=== PATIENT | male | born 1955 | race African-American/Black ===

== ENCOUNTER 2020-04-18 06:28 | Inpatient (IN) | payer OTHER ==
[~2020-04-18] VITALS: Ht 180.3 cm; Wt 87.6 kg
[2020-04-18] MEDS ORDERED: ONDANSETRON HCL 4MG/2ML INJ IV STA (08:00)
[2020-04-18] MEDS ORDERED: MORPHINE SULFATE 4 MG/ML CPJ (NOT FOR IM USE) IV STA (08:00)
[2020-04-18 08:11] LABS: BASOPHILS % 0.7 % (0.0-2.0); EOSINOPHILS % 4.4 % (0.0-5.0); HEMATOCRIT. 43.9 % (42.0-52.0); HEMOGLOBIN. 14.5 g/dL (14.0-18.0); LYMPHOCYTES % 12.2 % (20.0-50.0); MEAN CORPUSCULAR HEMOGLOBIN 26.1 pg (28.0-32.0); MEAN PLATELET VOLUME 7.2 fl (7.4-10.4); MONOCYTES % 9.9 % (2.0-8.0); NEUTROPHILS % 72.8 % (40.0-76.0); PLATELET 320 x1000/uL (130-400); RED BLOOD CELL COUNT 5.55 mill/uL (4.7-6.1); RED CELL DISTRIBUTION WIDTH 18.7 % (11.6-14.6)
[2020-04-18 08:15] LABS: CHLORIDE 104 mEq/L (98-107)
[2020-04-18 08:20] LABS: PROTHROMBIN TIME 11.1 sec (9.6-11.0)
[2020-04-18] MEDS ORDERED: MORPHINE SULFATE 4 MG/ML CPJ (NOT FOR IM USE) IV ONE (08:45)
[2020-04-18] MEDS ORDERED: KETOROLAC 30MG/ML VIAL IV ONE (08:45)
[2020-04-18] MEDS ORDERED: HYDROCODONE/ACETAMINOPHEN 10/325MG TABLET PO PRN (14:00)
[2020-04-18] MEDS ORDERED: ONDANSETRON HCL 4MG/2ML INJ IV PRN (14:00)
[2020-04-18] MEDS ORDERED: ACETAMINOPHEN 325MG TABLET PO PRN (14:00)
[2020-04-18] MEDS: MORPHINE SULFATE 2 MG/ML CPJ (NOT FOR IM USE) IV PRN ×3 (14:20→22:04)
[2020-04-18 15:20] VITALS: BP 156/76
[2020-04-18 20:13] VITALS: BP 171/79
[2020-04-18] MEDS: AMLODIPINE 5MG TABLET PO SCH (21:21)
[2020-04-19 00:06] VITALS: BP 145/75
[2020-04-19 04:22] VITALS: BP 143/78
[2020-04-19] MEDS: MORPHINE SULFATE 2 MG/ML CPJ (NOT FOR IM USE) IV PRN (05:44)
[2020-04-19 05:54] LABS: BASOPHILS % 0.6 % (0.0-2.0); EOSINOPHILS % 3.9 % (0.0-5.0); HEMATOCRIT. 42.6 % (42.0-52.0); LYMPHOCYTES % 13.1 % (20.0-50.0); MEAN CORPUSCULAR VOLUME 78.8 fL (80.0-94.0); MEAN PLATELET VOLUME 7.7 fl (7.4-10.4); MONOCYTES % 11.6 % (2.0-8.0); NEUTROPHILS % 70.8 % (40.0-76.0); PLATELET 272 x1000/uL (130-400); RED CELL DISTRIBUTION WIDTH 17.7 % (11.6-14.6)
[2020-04-19 07:09] LABS: CHLORIDE 103 mEq/L (98-107)
[2020-04-19 08:00] VITALS: BP 171/86
[2020-04-19] MEDS: AMLODIPINE 5MG TABLET PO SCH ×2 (08:45→19:50)
[2020-04-19 10:08] LABS: *AMPHETAMINES SCREEN URINE NEGATIVE (NEGATIVE); *BARBITURATES SCREEN URINE NEGATIVE (NEGATIVE)
[2020-04-19 10:09] LABS: *BENZODIAZEPINES SCREEN URINE NEGATIVE (NEGATIVE); *COCAINE SCREEN URINE NEGATIVE (NEGATIVE); CANNABINOID URINE SCREEN NEGATIVE (NEGATIVE); METHADONE URINE SCREEN NEGATIVE (NEGATIVE); OPIATES URINE SCREEN PRESUMTIVE POSITIVE (NEGATIVE); PHENCYCLIDINE URINE SCREEN NEGATIVE (NEGATIVE)
[2020-04-19 11:55] VITALS: BP 130/74
[2020-04-19] MEDS: MORPHINE SULFATE 4 MG/ML CPJ (NOT FOR IM USE) IV PRN ×3 (14:39→23:59)
[2020-04-19 16:00] VITALS: BP 132/50
[2020-04-19] MEDS: NITROGLYCERIN 0.4MG TABLET SL SL PRN ×3 (17:25→18:52)
[2020-04-19] MEDS: ISOSORBIDE MONONITRATE 60MG TABLET SR 24HR PO SCH (19:50)
[2020-04-19 20:28] VITALS: BP 133/76
[2020-04-20 00:02] VITALS: BP 137/68
[2020-04-20 04:00] VITALS: BP 131/70
[2020-04-20] MEDS: MORPHINE SULFATE 4 MG/ML CPJ (NOT FOR IM USE) IV PRN ×4 (04:08→17:18)
[2020-04-20 08:00] VITALS: BP 139/80
[2020-04-20] MEDS: AMLODIPINE 5MG TABLET PO SCH ×2 (08:43→22:35)
[2020-04-20] MEDS: ISOSORBIDE MONONITRATE 60MG TABLET SR 24HR PO SCH (08:43)
[2020-04-20] MEDS: OMEPRAZOLE 20MG CAPSULE EXTENDED RELEASE PO SCH (11:41)
[2020-04-20 12:08] VITALS: BP 146/62
[2020-04-20 16:05] VITALS: BP 120/73
[2020-04-20 20:51] VITALS: BP 130/80
[2020-04-20] MEDS: HYDROCODONE/ACETAMINOPHEN 10/325MG TABLET PO PRN (22:33)
[2020-04-20] MEDS: NITROGLYCERIN 0.4MG TABLET SL SL PRN (23:37)
[2020-04-21 00:31] VITALS: BP 138/75
[2020-04-21 04:15] VITALS: BP 143/68
[2020-04-21] MEDS: MORPHINE SULFATE 4 MG/ML CPJ (NOT FOR IM USE) IV PRN ×3 (07:01→19:58)
[2020-04-21] MEDS: OMEPRAZOLE 20MG CAPSULE EXTENDED RELEASE PO SCH (07:01)
[2020-04-21 08:20] VITALS: BP 144/73
[2020-04-21] MEDS: AMLODIPINE 5MG TABLET PO SCH ×2 (08:46→23:28)
[2020-04-21] MEDS: ISOSORBIDE MONONITRATE 60MG TABLET SR 24HR PO SCH (08:47)
[2020-04-21 12:00] VITALS: BP 130/72
[2020-04-21 16:00] VITALS: BP 137/73
[2020-04-21] MEDS: DOCUSATE SODIUM 250MG CAPSULE PO SCH (16:42)
[2020-04-21 20:00] VITALS: BP 155/75
[2020-04-22] VITALS (7 sets, daily range): BP systolic 116–141; BP diastolic 57–74
[2020-04-22] MEDS: MORPHINE SULFATE 4 MG/ML CPJ (NOT FOR IM USE) IV PRN (00:49)
[2020-04-22] MEDS: AMLODIPINE 5MG TABLET PO SCH (08:37)
[2020-04-22] MEDS: DOCUSATE SODIUM 250MG CAPSULE PO SCH (08:37)
[2020-04-22] MEDS: ISOSORBIDE MONONITRATE 60MG TABLET SR 24HR PO SCH (08:37)
[2020-04-22] MEDS: HYDROCODONE/ACETAMINOPHEN 10/325MG TABLET PO PRN ×2 (08:39→16:53)
[2020-04-22] MEDS ORDERED: FAMOTIDINE 20MG TABLET PO SCH (09:00)
[2020-04-22] MEDS ORDERED: LACTULOSE 20G/30ML UDC PO NR (14:00)
[2020-04-22] MEDS ORDERED: MAGNESIUM/ALUMINUM HYDROXIDE/SIMETHICONE 30ML UDC PO PRN (14:00)
== END 2020-04-22 18:45 | disposition home or self-care (01) | DRG 536 ==
LOC: ER 06:28 → 6WST 11:52 → ENRESERV 13:09
PROVIDERS: ADMIT Internal Medicine; ATTEND Internal Medicine
DX: S72.002A Fracture of unspecified part of neck of left femur, initial encounter for closed fracture (principal); E87.1 Hypo-osmolality and hyponatremia; I50.40 Unspecified combined systolic (congestive) and diastolic (congestive) heart failure; M16.0 Bilateral primary osteoarthritis of hip; W10.9XXA Fall (on) (from) unspecified stairs and steps, initial encounter; I25.10 Atherosclerotic heart disease of native coronary artery without angina pectoris; Z20.828 Contact with and (suspected) exposure to other viral communicable diseases; Z60.2 Problems related to living alone; I11.0 Hypertensive heart disease with heart failure; I25.2 Old myocardial infarction; Y93.89 Activity, other specified; Y92.89 Other specified places as the place of occurrence of the external cause; Y99.8 Other external cause status; Z79.899 Other long term (current) drug therapy; Z88.8 Allergy status to other drugs, medicaments and biological substances
CPT/HCPCS: 36415; 71045; 72170; 73502; 80048; 80053; 80305; 84484; 85025; 93005; 93306; 99285; J1885; J2270; J2405; U0003-CS